=== PATIENT | female | born 1975 | race Two or more races ===

== ENCOUNTER 2020-09-02 15:07 | Emergency (ER) | payer SELFPAY | END 2020-09-02 16:34 | disposition left against medical advice (07) | LOC: ER 15:07 | DX: N39.0 Urinary tract infection, site not specified (principal); Z53.21 Procedure and treatment not carried out due to patient leaving prior to being seen by health care provider ==

== ENCOUNTER 2021-06-25 17:52 | Emergency (ER) | payer OTHER ==
[~2021-06-25] VITALS: Ht 154.9 cm; Wt 56.2 kg
[2021-06-25] MEDS ORDERED: IV NORMAL SALINE 1000ML BAG 1,000 ML IV ONE (18:45)
[2021-06-25 19:05] LABS: BASO # 0.1 x10^3/uL (0.0-0.2); BASO % 1 % (0-3); EOS # 0.1 x10^3/uL (0.0-0.7); EOS % 1 % (0-3); HEMATOCRIT 38.6 % (36.0-47.0); HEMOGLOBIN 12.7 g/dL (12.0-15.5); LYMPH # 0.4 x10^3/uL (1.0-4.8); LYMPH % 3 % (24-48); MEAN CORPUSCULAR HEMOGLOBIN 27 pg (25-35); MEAN CORPUSCULAR HGB CONC 33 g/dL (31-37); MEAN CORPUSCULAR VOLUME 81 fL (79-100); MONO # 0.5 x10^3/uL (0.0-1.1); MONO % 4 % (0-9); NEUT # 12.4 x10^3/uL (1.8-7.7); NEUT % 91 % (31-73); PLATELET COUNT 246 x10^3/uL (140-400); RED BLOOD COUNT 4.77 x10^6/uL (3.50-5.40); WHITE BLOOD COUNT 13.6 x10^3/uL (4.0-11.0)
[2021-06-25] MEDS ORDERED: fentaNYL PF VIAL 100 MCG/2 ML VIAL IVP ONE (19:15)
[2021-06-25] MEDS ORDERED: ONDANSETRON PF 4 MG/2 ML VIAL. IVP ONE (19:15)
[2021-06-25 19:17] LABS: CALCIUM 8.9 mg/dL (8.5-10.1); CREATININE 0.6 mg/dL (0.6-1.0); GFR 107.2; POTASSIUM 3.3 mmol/L (3.5-5.1)
[2021-06-25 19:23] LABS: ALBUMIN 3.7 g/dL (3.4-5.0); ALBUMIN/GLOBULIN RATIO 0.9 (1.0-1.7); TOTAL BILIRUBIN 0.7 mg/dL (0.2-1.0); TOTAL PROTEIN 7.8 g/dL (6.4-8.2)
[2021-06-25 19:30] LABS: INFLUENZA A PATIENT NEGATIVE (NEGATIVE); INFLUENZA B PATIENT NEGATIVE (NEGATIVE)
[2021-06-25] MEDS ORDERED: IOHEXOL 300 MG/ML 100ML VIAL. IV ONE (19:30)
--- NOTE | 2021-06-25 20:00 | RAD ---
Exam Date: 06/25/2021 7:[address] ABDOMEN+PELVIS W Indication: Reason: abd pain, n/v/d / Spl. Instructions: OMNI 300 75ML [phone] / History: . TECHNIQUE: CT examination of the abdomen and pelvis was performed following the administration of no nionic intravenous contrast. One or more of the following dose reduction techniques were utilized: *Automated exposure control (AEC) *Adjustment of mA and/or kV according to patient size *Use of iterative reconstruction technique *CT scan done according to ALARA, or ALARA/IMAGE GENTLY FINDINGS: The visualized lung bases are clear. The liver, gallbladder, spleen, pancreas, adrenal glands and kidneys are normal. Urinary bladder is normal in appearance. There is no bowel obstruction or inflammation. No evidence for acute appendicitis. No significant atherosclerotic calcifications are seen. No lymphadenopathy or ascites is seen. Degenerative changes are seen in the spine. IMPRESSION: No evidence of acute intra-abdominal pathology. Electronically signed by: Derrell Paz MD (06/25/2021 7:57 PM) [facility]
[2021-06-25 21:34] LABS: BACTERIA,URINE FEW /HPF (0-FEW)
[2021-06-25 22:00] VITALS: BP 96/59
[2021-06-25] MEDS ORDERED: CEPHALEXIN 250 MG CAPSULE. PO STA (22:09)
[2021-06-25] MEDS ORDERED: ONDA4TAB12 PO (22:09)
[2021-06-25] MEDS ORDERED: CEPH500T PO (22:09)
[2021-06-25] MEDS ORDERED: DICY20TA PO (22:09)
--- NOTE | 2021-06-25 22:09 | PHYS DOC ---
Past Medical History Past Surgical History: (ZENY WINTERS EVENT OPERATIONS MANAGER) Smoking Status: Never Smoker Alcohol Use: None (ZENY WINTERS EVENT OPERATIONS MANAGER) General Adult EDM: Chief Complaint: ABDOMINAL PAIN HPI: HPI: Patient is a 45 year old female who presents to the ED today complaining of 10 out of 10 generalized abdominal pain described as crampy, nausea vomiting and diarrhea, symptoms began 2 days ago after having a hot dog. Patient denies any fever, coughing, congestion, denies any hematemesis or melena. Denies anything specifically exacerbating or relieving the pain. (ZENY WINTERS EVENT OPERATIONS MANAGER) Review of Systems: Review of Systems: Constitutional: Denies fever or chills. [] Eyes: Denies change in visual acuity. [] HENT: Denies nasal congestion or sore throat. [] Respiratory: Denies cough or shortness of breath. [] Cardiovascular: Denies chest pain or edema. [] GI: Reports abdominal pain, nausea vomiting and diarrhea : Denies dysuria. [] Musculoskeletal: Denies back pain or joint pain. [] Integument: Denies rash. [] Neurologic: Denies headache, focal weakness or sensory changes. [] ] Psychiatric: Denies depression or anxiety. [] (ZENY WINTERS EVENT OPERATIONS MANAGER) Heart Score: C/O Chest Pain: N/A Risk Factors: Risk Factors: DM, Current or recent (<one month) smoker, HTN, HLP, family history of CAD, obesity. Risk Scores: Score 0 - 3: 2.5% MACE over next 6 weeks - Discharge Home Score 4 - 6: 20.3% MACE over next 6 weeks - Admit for Clinical Observation Score 7 - 10: 72.7% MACE over next 6 weeks - Early Invasive Strategies (ZENY WINTERS EVENT OPERATIONS MANAGER) Current Medications: Current Medications Medications (Trade) Dose Ordered Sig/José Luis Start Time Stop Time Status Last Admin Dose Admin Fentanyl Citrate (Fentanyl 2ml Vial) 50 mcg 1X ONCE 06/25/21 19:15 06/25/21 19:16 DC 06/25/21 19:56 50 MCG Iohexol (Omnipaque 300 Mg/ml) 75 ml 1X ONCE 06/25/21 19:30 06/25/21 19:31 DC 06/25/21 19:32 75 ML Ondansetron HCl (Zofran) 4 mg 1X ONCE 06/25/21 19:15 06/25/21 19:16 DC 06/25/21 19:54 4 MG Sodium Chloride 1,000 ml @ 1,000 mls/hr 1X ONCE 06/25/21 18:45 06/25/21 19:44 DC 06/25/21 19:55 1,000 MLS/HR (ZENY WINTERS EVENT OPERATIONS MANAGER) Allergies: Allergies: Allergies Coded Allergies Type Severity Reaction Last Updated Verified No Known Drug Allergies 06/25/21 No (ZENY WINTERS EVENT OPERATIONS MANAGER) Physical Exam: PE: Constitutional: Well developed, well nourished, no acute distress, non-toxic appearance. [] HENT: Normocephalic, atraumatic, bilateral external ears normal, oropharynx moist, no oral exudates, nose normal. [] Eyes: PERRLA, EOMI, conjunctiva normal, no discharge. [] Neck: Normal range of motion, no tenderness, supple, no stridor. [] Cardiovascular:Heart rate regular rhythm, no murmur [] Lungs & Thorax: Bilateral breath sounds clear to auscultation [] Abdomen: Bowel sounds normal, soft, generalized abdominal tenderness with no obvious point tenderness to the right upper quadrant or right lower quadrant, no masses, no pulsatile masses. [] Skin: Warm, dry, no erythema, no rash. [] Back: No tenderness, no CVA tenderness. [] Extremities: No tenderness, no cyanosis, no clubbing, ROM intact, no edema. [] Neurologic: Alert and oriented X 3, normal motor function, normal sensory function, no focal deficits noted. [] Psychologic: Affect normal, judgement normal, mood normal. [] (ZENY WINTERS EVENT OPERATIONS MANAGER) Current Patient Data: Labs: Laboratory Tests Test 06/25/21 18:57 06/25/21 20:30 White Blood Count 13.6 x10^3/uL (4.0-11.0) H Red Blood Count 4.77 x10^6/uL (3.50-5.40) Hemoglobin 12.7 g/dL (12.0-15.5) Hematocrit 38.6 % (36.0-47.0) Mean Corpuscular Volume 81 fL (79-100) Mean Corpuscular Hemoglobin 27 pg (25-35) Mean Corpuscular Hemoglobin Concent 33 g/dL (31-37) Red Cell Distribution Width 16.0 % (11.5-14.5) H Platelet Count 246 x10^3/uL (140-400) Neutrophils (%) (Auto) 91 % (31-73) H Lymphocytes (%) (Auto) 3 % (24-48) L Monocytes (%) (Auto) 4 % (0-9) Eosinophils (%) (Auto) 1 % (0-3) Basophils (%) (Auto) 1 % (0-3) Neutrophils # (Auto) 12.4 x10^3/uL (1.8-7.7) H Lymphocytes # (Auto) 0.4 x10^3/uL (1.0-4.8) L Monocytes # (Auto) 0.5 x10^3/uL (0.0-1.1) Eosinophils # (Auto) 0.1 x10^3/uL (0.0-0.7) Basophils # (Auto) 0.1 x10^3/uL (0.0-0.2) Sodium Level 136 mmol/L (136-145) Potassium Level 3.3 mmol/L (3.5-5.1) L Chloride Level 104 mmol/L (98-107) Carbon Dioxide Level 24 mmol/L (21-32) Anion Gap 8 (6-14) Blood Urea Nitrogen 8 mg/dL (7-20) Creatinine 0.6 mg/dL (0.6-1.0) Estimated GFR (Cockcroft-Gault) 107.2 BUN/Creatinine Ratio 13 (6-20) Glucose Level 101 mg/dL (70-99) H Calcium Level 8.9 mg/dL (8.5-10.1) Total Bilirubin 0.7 mg/dL (0.2-1.0) Aspartate Amino Transferase (AST) 20 U/L (15-37) Alanine Aminotransferase (ALT) 39 U/L (14-59) Alkaline Phosphatase 94 U/L (46-116) Total Protein 7.8 g/dL (6.4-8.2) Albumin 3.7 g/dL (3.4-5.0) Albumin/Globulin Ratio 0.9 (1.0-1.7) L Lipase 88 U/L (73-393) Influenza Type A Antigen Negative (NEGATIVE) Influenza Type B Antigen Negative (NEGATIVE) SARS-CoV-2 Antigen (Rapid) Negative (NEGATIVE) Urine Collection Type Unknown Urine Color (Auto) Light yellow Urine Turbidity Clear Urine pH (Auto) 6.5 (<5.0-8.0) Urine Specific [place] 1.043 (1.000-1.030) Urine Protein (Auto) Negative mg/dL (Negative) Urine Glucose (Auto)(UA) Negative mg/dL (Negative) Urine Ketones (Auto) 40 mg/dL (Negative) Urine Blood (Auto) Large (Negative) Urine Nitrite Negative (Negative) Urine Bilirubin (Auto) Negative (Negative) Urine Urobilinogen (Auto) Normal mg/dL (Normal) Urine Leukocyte Esterase (Auto) Moderate (Negative) Urine RBC 3-5 /HPF (0-2) Urine WBC 1-4 /HPF (0-4) Urine Squamous Epithelial Cells Mod /LPF Urine Bacteria Few /HPF (0-FEW) Urine Mucus Slight /LPF Laboratory Tests 06/25/21 18:57 Laboratory Tests 06/25/21 18:57 Vital Signs: Vital Signs Date Time Temp Pulse Resp B/P (MAP) Pulse Ox O2 Delivery O2 Flow Rate FiO2 06/25/21 19:56 18 94 Room Air 06/25/21 19:40 94 117/60 (79) 06/25/21 18:15 99.4 99.4 (ZENY WINTERS [facility]) EKG: EKG: [] (ZENY WINTERS [facility]) Radiology/Procedures: Radiology/Procedures: []PROCEDURE: CT ABD PELV W/ IV CONTRST ONLY Exam Date: 06/25/2021 7:[address] ABDOMEN+PELVIS W Indication: Reason: abd pain, n/v/d / Spl. Instructions: OMNI 300 75ML [phone] / History: . TECHNIQUE: CT examination of the abdomen and pelvis was performed following the administration of nonionic intravenous contrast. One or more of the following dose reduction techniques were utilized: *Automated exposure control (AEC) *Adjustment of mA and/or kV according to patient size *Use of iterative reconstruction technique *CT scan done according to ALARA, or ALARA/IMAGE GENTLY FINDINGS: The visualized lung bases are clear. The liver, gallbladder, spleen, pancreas, adrenal glands and kidneys are normal. Urinary bladder is normal in appearance. There is no bowel obstruction or inflammation. No evidence for acute appendicitis. No significant atherosclerotic calcifications are seen. No lymphadenopathy or ascites is seen. Degenerative changes are seen in the spine. IMPRESSION: No evidence of acute intra-abdominal pathology. Electronically signed by: Rosmery Paz MD (06/25/2021 7:57 PM) [facility] DICTATED and SIGNED BY: ROSMERY PAZ MD DATE: 06/25/211947 (ZENY WINTERS APRN) Course & Med Decision Making: Course & Med Decision Making Pertinent Labs and Imaging studies reviewed. (See chart for details) This is a 45-year-old female patient presented to the ED today complaining of generalized abdominal pain with nausea vomiting and diarrhea, symptoms began 2 days ago after having a hot dog. Arrives in the ED with a temperature of 99.4, heart rate 104, respirations 16 on room air, blood pressure 105/61, O2 sats 97% CBC with a WBC of 13.6, CMP with nothing acute. UA noted for moderate amount of leukocytes, CT of the abdomen and pelvis is negative. Negative rapid Covid test, negative rapid influenza a and B test Discharge on cephalexin, first dose given in the ED. Given prescription for Zofran. Tylenol Motrin for pain or fever. Follow-up with PCP in 1 to 2 weeks. Provided return precautions. Rx for dicyclomine also provided (ZENY WINTERS APRN) Course & Med Decision Making Patients Care and treatment plan provided by ER Nurse Practitioner. I was available for consult. Patient's chart reviewed. (VAN RIOS DO) Chela Disclaimer: Chela Disclaimer: This electronic medical record was generated, in whole or in part, using a voice recognition dictation system. (ZENY WINTERS APRN) Departure Departure Impression: Primary Impression: Urinary tract infection Qualified Codes: N39.0 - Urinary tract infection, site not specified Additional Impressions: Diarrhea Qualified Codes: R19.7 - Diarrhea, unspecified Nausea and vomiting Qualified Codes: R11.2 - Nausea with vomiting, unspecified Disposition: HOME / SELF CARE / HOMELESS Condition: STABLE Referrals: NO PCP (PCP) follow up with your doctor in one week Patient Instructions: Abdominal Pain, Urinary Tract Infection Additional Instructions: You were evaluated in the emergency room, you were noted to have urinary tract infection. Take the prescribed antibiotics until completed. Push fluids, maintain good hand hygiene. Come back to the ED at any point symptoms worsen Scripts Dicyclomine Hcl (DICYCLOMINE HCL) 20 Mg Tablet 1 TAB PO TID, #30 TAB 1 Refill Prov: ZENY WINTERS APRN 06/25/21 Ondansetron (ONDANSETRON ODT) 4 Mg Tab.rapdis 1 TAB PO PRN Q6-8HRS, #16 TAB Prov: ZENY WINTERS APRN 06/25/21 Cephalexin (CEPHALEXIN) 500 Mg Tablet 1 TAB PO BID, #14 TAB Prov: ZENY WINTERS APRN 06/25/21 ZENY WINTERS APRN Jun 25, 2021 22:09 VAN RIOS DO Jun 27, 2021 03:51
== END 2021-06-25 23:24 | disposition home or self-care (01) ==
LOC: ER 17:52
DX: N39.0 Urinary tract infection, site not specified (principal); R11.2 Nausea with vomiting, unspecified; R19.7 Diarrhea, unspecified; Z20.822 Contact with and (suspected) exposure to COVID-19; Z98.890 Other specified postprocedural states
CPT/HCPCS: 74177; 80053; 81001; 83690; 85025; 87086; 87428; 96361; 96374; 96375; 99285; J2405; J3010; J7030; Q9967; U0003